=== PATIENT | female | born 1980 | race Hispanic/Latino ===

== ENCOUNTER 2017-09-14 20:33 | Emergency (ER) | payer SELFPAY ==
[2017-09-14 21:13] LABS: BILIRUBIN,URINE Negative (NEGATIVE); COLOR,URINE Yellow (YELLOW); GLUCOSE, URINE (UA) >=1000 mg/dL (NEGATIVE); KETONES,URINE 40 mg/dL (NEGATIVE); LEUKOCYTE ESTERASE ,URINE Moderate (NEGATIVE); NITRATE,URINE Positive (NEGATIVE); OCCULT BLOOD,URINE Nonhemolyzed Trace (NEGATIVE); PROTEIN,URINE Negative (NEGATIVE)
[2017-09-14 21:17] LABS: APPEARANCE,URINE SLIGHTLY CLOUDY (CLEAR)
[2017-09-14] MEDS ORDERED: SODIUM CHLORIDE 0.9% 1000ML 3,000 ML IV ONE (21:24)
[2017-09-14 21:42] LABS: BASOPHILS % (AUTO) 0.4 % (0.0-5.0); EOSINOPHILS % (AUTO) 1.3 % (0.0-8.0); HEMATOCRIT 39.4 % (36-48); LYMPHOCYTES % (AUTO) 21.1 % (21.0-51.0); MEAN CORPUSCULAR HEMOGLOBIN 28.1 pg (27.0-33.0); MEAN CORPUSCULAR HGB CONC 34.5 g/dL (32.0-36.0); MEAN CORPUSCULAR VOLUME 81.5 fL (79-99); MONOCYTES % (AUTO) 6.5 % (3.0-13.0); NEUTROPHILS % (AUTO) 70.7 % (40.0-77.0); PLATELET COUNT (AUTO) 266 K/uL (130-400); RED BLOOD CELL COUNT(AUTO) 4.83 MIL/uL (4.00-5.50); RED CELL DISTRIBUTION WIDTH 15.2 % (11.0-15.5); WHITE BLOOD COUNT (AUTO) 10.3 K/uL (4.8-10.8)
[2017-09-14] MEDS ORDERED: CEFTRIAXONE SODIUM 1 GM ONE (21:46)
[2017-09-14 22:17] LABS: BACTERIA,URINE Few /HPF (None Seen); SQUAMOUS EPITHELIAL CELL,UR Few /LPF (0-2)
[2017-09-14 22:21] LABS: INR 0.94 (0.85-1.15); PARTIAL THROMBOPLASTIN TIME 29.2 SEC (26.3-35.5); PROTHROMBIN TIME 9.9 SEC (9.6-11.6)
[2017-09-14 22:26] LABS: CARBON DIOXIDE 26 mmol/L (21-32); CHLORIDE 97 mmol/L (101-111); CREATININE 0.7 mg/dL (0.5-1.5); GLOMERULAR FILTR. RATE CALC 101 mL/min (>60); GLUCOSE,RANDOM 361 mg/dL (70-105); POTASSIUM 3.8 mmol/L (3.5-5.1); SODIUM SERUM 135 mmol/L (136-145); UREA NITROGEN, BLOOD 8 mg/dL (7-18)
[2017-09-14] MEDS ORDERED: ACETAMINOPHEN EXTRA STRENGTH 500 MG TABLET ONE (22:35)
[2017-09-14] MEDS ORDERED: INSULIN HUMULIN R 100 UNIT/ML 3ML ONE (22:36)
[2017-09-14 22:54] LABS: ALANINE AMINOTRANSFERASE 18 U/L (12-78); ALBUMIN 3.3 g/dL (3.5-5.0); ASPARTATE AMINOTRANSFERASE 13 U/L (10-37); CREATINE KINASE, TOTAL 30 U/L (21-232); MYOGLOBIN 10 ng/mL (10-92); TOTAL PROTEIN, SERUM 7.7 g/dL (6.0-8.3); TROPONIN I < 0.04 ng/mL (0.00-0.06)
[2017-09-14 23:16] LABS: CREATINE KINASE MB < 0.5 ng/mL (0.5-3.6)
== END 2017-09-15 00:56 | disposition home or self-care (01) ==
LOC: EDH 20:33
DX: N10 Acute pyelonephritis (principal); E11.65 Type 2 diabetes mellitus with hyperglycemia
CPT/HCPCS: 36415; 71045; 74176; 80053; 81001; 81025; 82009; 82550; 82553; 82948; 83605; 83874; 84484; 85025; 85610; 85730; 87040 ×2; 87088; 87186; 93005; 96361; 96374; 96375; 99285; J0696; J1815; J7030

== ENCOUNTER 2021-03-16 11:34 | Emergency (ER) | payer MEDICAID, OTHER ==
[~2021-03-16] VITALS: Ht 167.6 cm; Wt 91.6 kg
[2021-03-16 11:36] VITALS: BP 117/76
[2021-03-16] MEDS: IBUPROFEN 600 MG TABLET PO ONE (13:26)
[2021-03-16] MEDS: ACETAMINOPHEN WITH CODEINE 1 TAB TAB PO ONE (13:26)
[2021-03-16] MEDS: OSELTAMIVIR PHOSPHATE 75 MG CAP PO ONE (13:27)
[2021-03-16] MEDS ORDERED: ALBUHFA IH (13:43)
[2021-03-16] MEDS ORDERED: D-ME1POW16 PO (13:43)
[2021-03-16] MEDS ORDERED: FLUT1DIS IH (13:43)
[2021-03-16] MEDS ORDERED: OSEL75 PO (13:43)
== END 2021-03-16 14:25 | disposition home or self-care (01) ==
LOC: EDH 11:34
DX: U07.1 COVID-19 (principal); J22 Unspecified acute lower respiratory infection; J10.1 Influenza due to other identified influenza virus with other respiratory manifestations; E11.9 Type 2 diabetes mellitus without complications; E78.00 Pure hypercholesterolemia, unspecified; Z79.899 Other long term (current) drug therapy
CPT/HCPCS: 71045; 87635; 87804 ×2; 99284; C9803

== ENCOUNTER 2022-07-27 20:44 | Emergency (ER) | payer MEDICAID, OTHER ==
[~2022-07-27] VITALS: Ht 157.5 cm; Wt 86.6 kg
[~2022-07-27 20:44] MED LIST: ALBUHFA IH; D-ME1POW16 PO; FLUT1DIS IH; OSEL75 PO
[2022-07-27] MEDS ORDERED: IBUPROFEN 600 MG TABLET PO ONE (22:00)
[2022-07-27] MEDS ORDERED: ACETAMINOPHEN 500 MG TABLET PO ONE (22:00)
[2022-07-27] MEDS ORDERED: 0.9%NACL 1000ML 1,000 ML IV SCH (22:00)
[2022-07-27] MEDS ORDERED: MORPHINE 4 MG SYG IVP ONE (22:30)
[2022-07-27] MEDS ORDERED: ONDANSETRON 4MG INJ IVP ONE (22:30)
[2022-07-27 22:32] LABS: BASOPHILS % (AUTO) 0.3 % (0.0-5.0); HEMATOCRIT 35.6 % (36-48); LYMPHOCYTES % (AUTO) 12.6 % (21.0-51.0); MEAN CORPUSCULAR VOLUME 74.9 fL (79-99); MONOCYTES % (AUTO) 5.1 % (3.0-13.0); NEUTROPHILS % (AUTO) 81.3 % (40.0-77.0); PLATELET COUNT (AUTO) 201 K/uL (130-400); RED BLOOD CELL COUNT(AUTO) 4.75 MIL/uL (4.00-5.50); RED CELL DISTRIBUTION WIDTH 15.7 % (11.0-15.5); WHITE BLOOD COUNT (AUTO) 10.3 K/uL (4.8-10.8)
[2022-07-27 22:37] LABS: HCG,QUALITATIVE URINE NEGATIVE (NEGATIVE)
[2022-07-27 22:39] LABS: APPEARANCE,URINE CLEAR (CLEAR); BILIRUBIN,URINE NEGATIVE (NEGATIVE); COLOR,URINE LIGHT-YELLOW (YELLOW); GLUCOSE, URINE (UA) >=1000 mg/dL (NEGATIVE); KETONES,URINE >=80 mg/dL (NEGATIVE); LEUKOCYTE ESTERASE ,URINE 250 Leu/uL (NEGATIVE); NITRATE,URINE NEGATIVE (NEGATIVE); OCCULT BLOOD,URINE NEGATIVE (NEGATIVE); PH,URINE 7.5 (5.0-8.0); PROTEIN,URINE NEGATIVE (NEGATIVE); UROBILINOGEN,URINE 0.2 mg/dL (0.2-1.0)
[2022-07-27 22:43] LABS: CREATININE 0.8 mg/dL (0.5-1.5); POTASSIUM 3.7 mmol/L (3.5-5.1); SQUAMOUS EPITHELIAL CELL,UR RARE /HPF (0-2); WBC,URINE >100 /HPF (0-1)
[2022-07-27 22:48] LABS: ALBUMIN 3.3 g/dL (3.5-5.0); TOTAL PROTEIN, SERUM 7.9 g/dL (6.0-8.3)
[2022-07-27] MEDS ORDERED: CEFTRIAXONE 1G VIAL IVP STA (23:09)
[2022-07-27] MEDS ORDERED: CEPH500B PO (23:28)
[2022-07-27] MEDS ORDERED: METF-445 PO (23:30)
[2022-07-27] MEDS ORDERED: 0.9%NACL 1000ML 1,000 ML IV ONE (23:30)
[2022-07-28 00:13] VITALS: BP 104/58
[2022-08-20] MEDS ORDERED: INSLAN SQ (10:21)
[2022-08-20] MEDS ORDERED: METF-446 PO (10:21)
[2022-08-20] MEDS ORDERED: GLIM4TAB36 PO (10:21)
[2022-08-20] MEDS ORDERED: LEVO750T39 PO (16:20)
== END 2022-07-28 00:21 | disposition home or self-care (01) ==
LOC: EDH 20:44
DX: N39.0 Urinary tract infection, site not specified (principal); E11.65 Type 2 diabetes mellitus with hyperglycemia; E78.00 Pure hypercholesterolemia, unspecified; Z20.822 Contact with and (suspected) exposure to COVID-19; Z79.1 Long term (current) use of non-steroidal anti-inflammatories (NSAID); Z79.51 Long term (current) use of inhaled steroids; Z79.84 Long term (current) use of oral hypoglycemic drugs; Z90.49 Acquired absence of other specified parts of digestive tract
CPT/HCPCS: 99285; 74176; 96374; 71045; 96375; 87635; 96361; 84484; 80053; 83690; 85025; 87040 ×2; 87077; 87088; 87186; 87804 ×2; 83605; 81001; 81025; 36415; 93005; C9803; J7030 ×2; J0696; J2405; J2270